=== PATIENT | female | born 1970 | race Caucasian/White ===

== ENCOUNTER 2022-01-15 11:57 | Outpatient (CLI) | payer BC, SELFPAY ==
[2022-01-15 21:19] LABS: Albumin* 4.6 g/dL (3.3-5.0); Chloride* 108 mmol/L (96-114); Sodium* 140 mmol/L (135-149)
[2022-01-15 21:20] LABS: Potassium* 4.4 mmol/L (3.6-5.1)
[2022-01-15 21:22] LABS: Alkaline Phosphatase* 87 U/L (40-150); Aspartate Amino Transferase* 30 U/L (12-35); Bilirubin Total* 0.6 mg/dL (0.1-1.5); Blood Urea Nitrogen* 17 mg/dL (7-30); Calcium* 9.4 mg/dL (8.4-10.6); Carbon Dioxide* 21 mmol/L (20-32); Cholesterol* 202 mg/dL (90-199); Creatinine* 1.1 mg/dL (0.5-1.5); Estimated Glomerular Filt Rate 61 ml/min; Glucose* 98 mg/dL (60-115); Total Protein* 7.4 g/dL (6.0-8.3); Triglycerides* 127 mg/dL (40-149)
[2022-01-15 21:23] LABS: Alanine Aminotransferase* 27 U/L (4-35); HDL Cholesterol* 54 mg/dL (>=50); LDL Cholesterol Calculated 123 mg/dL (<100)
[2022-01-15 21:52] LABS: TSH With Reflex to FT4* 0.476 uIU/mL (0.270-4.200)
[2022-01-17 11:07] LABS: Follicle Stimulating Hormone 7.2 IU/L
== END 2022-01-15 11:58 | disposition home or self-care (01) ==
PROVIDERS: PCP Physician Assistant Medical; Visit Provider Physician Assistant Medical
DX: Z00.00 Encounter for general adult medical examination without abnormal findings (principal); N91.2 Amenorrhea, unspecified; K75.4 Autoimmune hepatitis
CPT/HCPCS: 80053; 80061; 83001; 84443

== ENCOUNTER 2022-05-15 11:14 | Outpatient (CLI) | payer BC, SELFPAY ==
--- NOTE | 2022-05-15 11:30 | CRLHL7_ITS ---
For Patients: As a result of the Century Cures Act, medical imaging exams and procedure reports are released immediately into your electronic medical record. You may view this report before your referring provider. If you have questions, please contact your health care provider. BILATERAL SCREENING MAMMOGRAM WITH COMPUTER-AIDED DETECTION TECHNIQUE: CC and MLO views were obtained. These mammographic images have been obtained using full-field digital technique. These mammographic images were interpreted with the benefit of computer-aided detection. COMPARISON FILM: 03/28/17, 10/05/15, 03/01/10. FINDINGS: The breasts are almost entirely fatty IMPRESSION: There is no radiographic evidence for malignancy. ASSESSMENT: BI-RADS Category 1: Negative RECOMMENDATION: Routine screening mammogram in 1 year. A lay language report of this examination will be provided to the patient. Nas Hussein M.D. Diagnostic Radiologist [email or web address] DIANE/Dictated by: Nas Hussein MD @ 05/15/2022 12:21:00 PM (Electronically Signed)
== END 2022-05-15 11:15 | disposition home or self-care (01) ==
LOC: MAMMO 11:15
PROVIDERS: PCP Physician Assistant Medical; Visit Provider Physician Assistant Medical
DX: Z12.31 Encounter for screening mammogram for malignant neoplasm of breast (principal)
CPT/HCPCS: 77067

== ENCOUNTER 2022-09-26 13:08 | Outpatient (REF) | payer BC, SELFPAY ==
[2022-09-26 14:10] LABS: Albumin* 4.2 g/dL (3.3-5.0)
[2022-09-26 14:11] LABS: Chloride* 113 mmol/L (96-114); Potassium* 4.2 mmol/L (3.6-5.1); Sodium* 141 mmol/L (135-149)
[2022-09-26 14:13] LABS: Aspartate Amino Transferase* 34 U/L (12-35); Bilirubin Total* 0.6 mg/dL (0.1-1.5); Carbon Dioxide* 22 mmol/L (20-32); Cholesterol* 184 mg/dL (90-199); Creatinine* 1.1 mg/dL (0.5-1.5); Estimated Glomerular Filt Rate 60 ml/min; Total Protein* 7.1 g/dL (6.0-8.3)
[2022-09-26 14:14] LABS: Alanine Aminotransferase* 42 U/L (4-35); Alkaline Phosphatase* 66 U/L (40-150); Blood Urea Nitrogen* 17 mg/dL (7-30); Glucose* 91 mg/dL (60-115); Triglycerides* 97 mg/dL (40-149)
[2022-09-26 14:15] LABS: Calcium* 8.9 mg/dL (8.4-10.6); HDL Cholesterol* 47 mg/dL (>=50); LDL Cholesterol Calculated 118 mg/dL (<100)
[2022-09-26 14:22] LABS: Hemoglobin A1C* 5.22 % (0-5.6)
[2022-09-26 14:44] LABS: TSH With Reflex to FT4* 0.952 uIU/mL (0.270-4.200)
[2022-09-28 12:53] LABS: Insulin, Fasting 11 uIU/mL (3-25)
[2022-09-28 17:08] LABS: CRP, High Sensitivity 3.8 mg/L (<=3.0)
== END 2022-09-26 13:09 | disposition home or self-care (01) ==
LOC: NPINS 13:08
PROVIDERS: PCP Physician Assistant Medical
DX: E66.9 Obesity, unspecified (principal); Z13.6 Encounter for screening for cardiovascular disorders; Z13.1 Encounter for screening for diabetes mellitus; Z13.29 Encounter for screening for other suspected endocrine disorder; Z13.228 Encounter for screening for other metabolic disorders
CPT/HCPCS: 80053; 80061; 83036; 83525; 84443; 86141

== ENCOUNTER 2023-02-22 16:53 | Outpatient (CLI) | payer BC, SELFPAY | END 2023-02-22 16:54 | disposition home or self-care (01) | LOC: LKVREF 16:54 | PROVIDERS: PCP Physician Assistant Medical; Visit Provider Nurse Practitioner Family | DX: Z20.822 Contact with and (suspected) exposure to COVID-19 (principal); K75.4 Autoimmune hepatitis; R05.8 Other specified cough | CPT/HCPCS: 80053 ==

== ENCOUNTER 2023-06-08 13:43 | Emergency (ER) | payer BC, SELFPAY ==
[2023-06-08 13:49] VITALS: BP 122/79; PULSE 94; RESP 16; TEMP 36.8; O2SAT 100; BMI 31.1
--- NOTE | 2023-06-08 14:06 | CRLHL7_ITS ---
For Patients: As a result of the Century Cures Act, medical imaging exams and procedure reports are released immediately into your electronic medical record. You may view this report before your referring provider. If you have questions, please contact your health care provider. INDICATION: Left-sided chest pain COMPARISON: 02/22/2023 TECHNIQUE: PA and lateral 2 view chest radiograph. FINDINGS: The lungs are well expanded. No focal consolidations. No pulmonary edema. No pleural effusion. No pneumothorax. No pneumomediastinum. Normal cardiomediastinal silhouette. Bones: Normal for age. Surgical clips upper abdomen. Rounded calcifications in both upper quadrants and a similar distribution to prior. IMPRESSION: Lungs are clear. No acute findings. Dictated by Suyapa Rubin MD @ 06/08/2023 2:54:36 PM (Electronically Signed)
[2023-06-08 14:35] LABS: Appearance Urine Turbid (Clear); Bilirubin Urine Negative (Negative); Blood Urine 2+ (Negative); Glucose Urine Negative (Negative); Ketones Urine Negative (Negative); Leukocyte Esterase Urine Trace (Negative); Nitrite Urine Negative (Negative); Protein Urine 2+ (Negative); Specific Gravity Urine 1.015 (1.000-1.030); Urobilinogen Urine 0.2 (0.2-1.0)
--- NOTE | 2023-06-08 14:37 | ED_ITS ---
HPI - General Adult General Chief complaint: Fall/Minor Trauma Stated complaint: Thinks kidney infection-back pain Time Seen by Provider: 06/08/23 13:58 History of Present Illness HPI narrative: Patient is a 53-year-old white female who has had history of kidney stones, autoimmune hepatitis which he is on chronic steroids presents with left flank pain that started today she describes it more in her left lower chest wall. She has no breathing difficulty, no anterior chest pain, no diaphoresis or shortness of breath. She has had no fever chills or cough. She has had a kidney stone in the past. She is wondering if that might be the case. Has not noticed any blood in her urine. She presents to ED for evaluations much better at this point. She did feel little nauseated to now that is passed. Related Data Home Medications Medication Instructions Recorded Confirmed prednisone 5 mg tablet 5 mg PO DAILY 01/15/22 06/08/23 Previous Rx's Medication Instructions Recorded medroxyprogesterone 150 mg/mL 1 mg (0.0067 mL) IM [id number] #1 mL 01/15/22 intramuscular suspension buspirone 15 mg tablet 7.5 mg (1/2 x 15 mg) PO TID #135 04/22/23 tabs levothyroxine 88 mcg tablet 88 mcg PO DAILY #90 tabs 04/22/23 Allergies Allergy/AdvReac Type Severity Reaction Status Date / Time levofloxacin Allergy Intermediate Rash Verified 06/08/23 13:49 azathioprine Allergy Mild Rash Verified 06/08/23 13:49 clotrimazole Allergy Mild Burning Verified 06/08/23 13:49 Review of Systems Status of ROS: Reports: 6 or more systems reviewed and unremarkable except as noted in History and below PFSH PFS Medical History COVID-19 ?U07.1 - COVID-19 (ICD-10) Surgical History History of endometrial ablation ?Z98.890 - Other specified postprocedural states (ICD-10) History of bilateral ligation of fallopian tubes ?Z98.51 - Tubal ligation status (ICD-10) Family History Other Crohn's disease Rheumatoid arthritis Social History Smoking Status: Never smoker Do you use any of these nicotine containing products: None Second hand tobacco smoke exposure: No How often do you have a drink containing alcohol: never AUDIT-C Alcohol total score: 0 Non-prescribed substance use: denies use Little interest or pleasure in doing things: several days Feeling down, depressed, or hopeless: not at all Exam Narrative: Exam Narrative: Objective: Afebrile in good O2 sat General no apparent distress HEENT is unremarkable no scleral icterus mouth clear neck is supple chest is clear no rales or wheezing heart rhythm regular no murmur abdomen nontender no masses no rebound negative CVA tenderness patient does have exquisite tenderness over costochondral margin on the left no rash noted there this is at the mid axillary line Extremities are no edema neurologic nonfocal. Const: Vital Signs, click to edit/add: Vital Signs - 24 hr 06/08/23 13:49 06/08/23 16:00 Temperature 98.3 F Pulse Rate [Pulse Oximeter] 94 95 Respiratory Rate 16 Blood Pressure [Ri t Upper Arm] 122/79 Pulse Oximetry 100 96 Oxygen Delivery Me thod Room Air Room Air Course Vital Signs Vital signs: Initial Vital Signs Temperature 98.3 F 06/08/23 13:49 Temperature Source Temporal Artery Scan 06/08/23 13:49 Pulse Rate 94 06/08/23 13:49 Respiratory Rate 16 06/08/23 13:49 Blood Pressure 122/79 06/08/23 13:49 Blood Pressure Mean 93 06/08/23 13:49 Blood Pressure Position Sitting 06/08/23 13:49 Pulse Oximetry 100 06/08/23 13:49 Oxygen Delivery Method Room Air 06/08/23 13:49 Vital Signs Temperature 98.3 F 06/08/23 13:49 Pulse Rate 94 06/08/23 13:49 Respiratory Rate 16 06/08/23 13:49 Blood Pressure 122/79 06/08/23 13:49 Pulse Oximetry 100 06/08/23 13:49 Oxygen Delivery Method Room Air 06/08/23 13:49 Temperature 98.3 F 06/08/23 13:49 Pulse Rate 95 06/08/23 16:00 Respiratory Rate 16 06/08/23 13:49 Blood Pressure 122/79 06/08/23 13:49 Pulse Oximetry 96 06/08/23 16:00 Oxygen Delivery Method Room Air 06/08/23 16:00 Medical Decision Making MDM Narrative Medical decision making narrative: 53-year-old female with left chest wall intercostal type pain costochondral type pain. She has palpable tenderness over lower ribcage. She has no anterior chest pain. I think because of her history kidney stones be reasonable get a urinalysis lab studies. Also got a chest x-ray which by my review looks unremarkable I do not see any obvious infiltrate or rib injury. She denies trauma. She has definitely exquisitely tender right over the lower chondral margin when palpated. If her labs reassuring I think she can simply try some anti-inflammatory medication and observe she is much better at this point. I do not have suspicion for acute coronary syndrome or pulmonary embolus. Especially with the exquisite physical things am finding a point tenderness or chondral margin I think that would be indicative of some chest wall inflammatory condition. Review these studies as they return. Addendum: 3:48 p.m. patient has a negative chest x-ray because her urinalysis is abnormal we did a CT scan of her abdomen without contrast she has multiple kidney stones in her kidneys she also has have 5 mm in a 7 mm stone in her left ureter I think that is the source of her issue. She has greater than 100 red cells per high-powered field and some bacteria. Because of the stones I think was put on antibiotics will give her Septra DS 1 p.o. b.i.d. times 10 days would also give her some [place] and Toradol. This will be [facility] med. She I recommend she see a urologist soon as possible for reassessment of her kidney stone issues. Again she has multiple stones in her kidneys 2 likely the severe recurrent issue. Lab Data Labs: Lab Results 06/08/23 06/08/23 Range/Units 14:10 14:27 WBC 10.81 (4.50-11.00) K/uL RBC 4.26 (4.00-5.20) m/uL Hgb 12.8 (12.0-16.0) gm/dL Hct 39.8 (33.0-51.0) % MCV 93 (80-100) fL MCH 30 (26-34) pg MCHC 32 (32-36) gm/dL RDW Coeff of [place]ora 12.9 (11.5-15.5) % Plt Count 200 (140-440) K/uL Neut % (Auto) 76.1 H (42.0-72.0) % Lymph % (Auto) 13.9 L (20-44) % Banks % (Auto) 7.9 (0.0-11.0) % Eos % (Auto) 1.1 (0.0-7.0) % Baso % (Auto) 0.2 (0.0-3.0) % Neut # (Auto) 8.20 H (1.7-7.0) K/uL Lymph # (Auto) 1.50 (0.90-2.90) K/uL Banks # (Auto) 0.90 (0.00-0.90) K/UL Eos # (Auto) 0.12 (0.00-0.50) K/uL Baso # (Auto) 0.02 (0.00-0.30) K/uL Abs Immat Gran (auto) 0.09 (0.00-0.30) K/uL Imm/Tot Granulo (auto) 0.8 % D-Dimer Quant (PE/DVT) 0.31 (0.00-0.50) ug/ml Sodium 141 (135-149) mmol/L Potassium 3.7 (3.6-5.1) mmol/L Chloride 110 (96-114) mmol/L Carbon Dioxide 20 (20-32) mmol/L Anion Gap 11 (7-15) mEq/L BUN 17 (7-30) mg/dL Creatinine 1.6 H (0.5-1.5) mg/dL Estimated Creat Clear 32.16 Estimated GFR 38 ml/min Glucose 82 (60-115) mg/dL Calcium 9.3 (8.4-10.6) mg/dL Total Bilirubin 0.7 (0.1-1.5) mg/dL Direct Bilirubin 0.0 (0.0-0.5) mg/dL AST 30 (12-35) U/L ALT 36 H (4-35) U/L Alkaline Phosphatase 72 (40-150) U/L C-Reactive Protein 2.7 H (0.5-1.0) mg/dL Total Protein 7.4 (6.0-8.3) g/dL Albumin 4.5 (3.3-5.0) g/dL Amylase 88 (18-89) U/L Urine Color Green A (Yellow) Urine Appearance Turbid A (Clear) Urine pH 7.0 (5.0-8.5) Ur Specific [place] 1.015 (1.000-1.030) Urine Protein 2+ A (Negative) Urine Glucose (UA) Negative (Negative) Urine Ketones Negative (Negative) Urine Blood 2+ A (Negative) Urine Nitrite Negative (Negative) Urine Bilirubin Negative (Negative) Urine Urobilinogen 0.2 (0.2-1.0) Ur Leukocyte Esterase Trace A (Negative) Urine RBC >100 A (0-2) Urine WBC 5-10 A (0-5) Ur Squamous Epith Cells Few (None-Few) Urine Bacteria Few A (None) Discharge Plan Discharge Clinical Impression: Acute chest wall pain, Kidney stone Patient Disposition: Home, Self-Care Condition: Stable Additional Instructions: Toradol an [place] as needed for flank pain. Ice to the left chest wall as needed 5 minutes 3 4 times a day. Light activity. Follow up with regular doctor in the next 3-4 days, certainly return to ED sooner problems concerns or worsening. Recommend urology appointment to follow-up kidney stones on the ureter on the left side. You contact your regular doctor regarding this as well. Please give the patient a urine strainer for the next 48 hours. Activity Level: Light activity Discharge Diet: Regular Prescriptions: No Action buspirone 15 mg tablet 7.5 mg PO TID Qty: 135 3RF prednisone 5 mg tablet 5 mg PO DAILY medroxyprogesterone 150 mg/mL suspension 1 mg IM [id number] Qty: 1 0RF Rx Instructions: Q 3 months levothyroxine 88 mcg tablet 88 mcg PO DAILY Qty: 90 3RF Follow Up/Referrals: Yola Walters PA-C [Primary Care Provider] - Stand Alone Forms: [facility] Info Instructions
[2023-06-08 14:42] LABS: Basophils Absolute Auto 0.02 K/uL (0.00-0.30); Basophils Percent Auto 0.2 % (0.0-3.0); Eosinophils Absolute Auto 0.12 K/uL (0.00-0.50); Eosinophils Percent Auto 1.1 % (0.0-7.0); Hematocrit 39.8 % (33.0-51.0); Hemoglobin* 12.8 gm/dL (12.0-16.0); Immature Granulocytes Abs Auto 0.09 K/uL (0.00-0.30); Immature Granulocytes Pct Auto 0.8 %; Lymphocytes Percent Auto 13.9 % (20-44); Mean Corpuscular HGB Conc 32 gm/dL (32-36); Mean Corpuscular Hemoglobin 30 pg (26-34); Mean Corpuscular Volume 93 fL (80-100); Monocytes Percent Auto 7.9 % (0.0-11.0); Neutrophils Percent Auto 76.1 % (42.0-72.0); Platelet Count* 200 K/uL (140-440); RDW Coefficient of Variation % 12.9 % (11.5-15.5); Red Blood Count 4.26 m/uL (4.00-5.20); White Blood Count* 10.81 K/uL (4.50-11.00)
[2023-06-08 14:48] LABS: Chloride* 110 mmol/L (96-114); Slide Review Reflex No; Sodium* 141 mmol/L (135-149)
[2023-06-08 14:49] LABS: Potassium* 3.7 mmol/L (3.6-5.1)
[2023-06-08 14:50] LABS: Albumin* 4.5 g/dL (3.3-5.0)
[2023-06-08 14:51] LABS: Amylase* 88 U/L (18-89); Creatinine* 1.6 mg/dL (0.5-1.5); Est. Creatinine Clearance* 32.16; Estimated Glomerular Filt Rate 38 ml/min
[2023-06-08 14:52] LABS: Anion Gap 11 mEq/L (7-15); Bilirubin Total* 0.7 mg/dL (0.1-1.5); Blood Urea Nitrogen* 17 mg/dL (7-30); Calcium* 9.3 mg/dL (8.4-10.6); Carbon Dioxide* 20 mmol/L (20-32); Glucose* 82 mg/dL (60-115); Total Protein* 7.4 g/dL (6.0-8.3)
[2023-06-08 14:53] LABS: Alanine Aminotransferase* 36 U/L (4-35); Alkaline Phosphatase* 72 U/L (40-150); Aspartate Amino Transferase* 30 U/L (12-35)
[2023-06-08 14:54] LABS: D Dimer Quantitative* 0.31 ug/ml (0.00-0.50)
[2023-06-08 14:55] LABS: C Reactive Protein* 2.7 mg/dL (0.5-1.0)
[2023-06-08 14:56] LABS: Bacteria Urine Few; RBC Urine >100 (0-2); Squamous Epithelial Cell Urine Few (None-Few)
--- NOTE | 2023-06-08 15:00 | CRLHL7_ITS ---
For Patients: As a result of the 21st Century Cures Act, medical imaging exams and procedure reports are released immediately into your electronic medical record. You may view this report before your referring provider. If you have questions, please contact your health care provider. INDICATION: Left flank pain. Hematuria TECHNIQUE: CT abdomen and pelvis without contrast. COMPARISON: None. FINDINGS: The study is performed without intravenous contrast. This limits sensitivity for detection of abdominal/pelvic pathology, including pathology of the vasculature (specifically evaluation of possible vascular thromboembolism, arterial dissection, stenosis or occlusion), the integrity of the bowel (including bowel wall enhancement) and solid viscera (including detection of focal lesions within the viscera). If there is ongoing concern for otherwise occult pathology such as this, based on the clinical presentation of the patient, consider the risk/benefit of a study with intravenous contrast. Lower chest: Inferior lingular segment left upper lobe pleural-based been opacity unchanged consistent with scar. Liver: Normal in size and attenuation. No suspicious masses. Gallbladder and bile ducts: Cholecystectomy. Pancreas: Unremarkable. No mass or inflammation. Spleen: Normal in size. No masses. Adrenal glands: Normal in size. No nodules. Kidneys: There are 2 stones in the left upper urinary tract, 1 measuring 5 mm at the ureteropelvic junction and another measuring 7 mm in the distal ureter at the level of the left acetabulum (series 3; image 52 and 2; 100, respectively). These findings are associated with left hydronephrosis, moderate, and parapelvic fat stranding consistent with obstructive uropathy. Numerous, too many index, bilateral nonobstructing nephroliths are otherwise identified. Anterior right upper pole 12 mm round circumscribed homogeneous low-density finding consistent with a benign cyst. GI tract: Unremarkable. Normal in caliber. No sign of mass or inflammation. Normal appendix. Vasculature: Abdominal aorta is normal in caliber. Lymph nodes: No lymphadenopathy. Peritoneum/Abdominal Wall: Unremarkable. No sign of mass or infiltration. No free air or significant free fluid. Pelvis: Unremarkable. No pelvic masses. Bones: Unremarkable for age. IMPRESSION: There are 2 left upper urinary tract obstructing stone is, the smaller measuring 5 mm at the ureteropelvic junction and the larger measuring 7 mm in the distal ureter in the pelvis at the level of the acetabulum. Associated findings consistent with obstructive uropathy including moderate left hydronephrosis. Numerous, too many index, bilateral nonobstructing nephroliths are otherwise identified. Please note that all CT scans at this facility use dose modulation, iterative reconstruction, and/or weight-based dosing when appropriate to reduce radiation dose to as low as reasonably achievable. Dictated by Niall Frances MD @ 06/08/2023 3:39:18 PM (Electronically Signed)
[2023-06-08 16:00] VITALS: PULSE 95; O2SAT 96
== END 2023-06-08 16:02 | disposition home or self-care (01) ==
LOC: ED 14:53
PROVIDERS: Emergency Provider Family Medicine; PCP Physician Assistant Medical
DX: R07.89 Other chest pain (principal); N20.0 Calculus of kidney
CPT/HCPCS: 36415; 71046; 74176; 80048; 80076; 81001; 82150; 85025; 85379; 86140; 87086; 99284; 99285

== ENCOUNTER 2023-07-10 16:26 | Outpatient (CLI) | payer BC, SELFPAY | END 2023-07-10 16:27 | disposition home or self-care (01) | PROVIDERS: PCP Physician Assistant Medical; Visit Provider Physician Assistant Medical | DX: E03.9 Hypothyroidism, unspecified (principal) | CPT/HCPCS: 82306; 82310; 83970; 84443; 87086 ==

== ENCOUNTER 2023-07-23 14:30 | Outpatient (CLI) | payer BC, SELFPAY ==
--- NOTE | 2023-07-23 15:00 | CT_ITS ---
Final Report Patient: TIFFANIE TAM Facility:?[facility] Patient ID:?[id number] Site Patient ID:?[id number]. Site :?[id number] Study:?CT Abdomen/Pelvis STONE STUDY-07/23/2023 2:58:01 PM Ordering Physician:RITESH Final Report: Indication: Renal stones Technique: Noncontrast CT abdomen and pelvis Please note that all CT scans at this facility use dose modulation, iterative reconstruction, and/or weight-based dosing when appropriate to reduce radiation dose to as low as reasonably achievable. Comparison: 06/08/2023 Findings: Bilateral renal stones are present measuring up to 6-7 millimeters. No hydronephrosis. No ureteral or bladder stone. No hydroureter. No inflammation. Liver normal. Gallbladder absent. Normal spleen. Pancreas normal. Normal adrenal glands. No bowel obstruction or free air. No free fluid. Normal uterus and ovaries. Appendix unremarkable. Degenerative facet arthropathy L4 through S1. No vertebral body compression fracture. Impression: Multiple bilateral nonobstructing renal calculi. Interval clearing of the previously noted stone within the left ureter. No hydronephrosis. Please note that all CT scans at this facility use dose modulation, iterative reconstruction, and/or weight-based dosing when appropriate to reduce radiation dose to as low as reasonably achievable. Dictated by Nas Hussein MD @ 07/24/2023 9:49:30 AM (Electronic Signature)
== END 2023-07-23 14:31 | disposition home or self-care (01) ==
PROVIDERS: PCP Physician Assistant Medical; Visit Provider Physician Assistant Medical
DX: N20.0 Calculus of kidney (principal)
CPT/HCPCS: 74176

== ENCOUNTER 2023-09-12 15:38 | Outpatient (CLI) | payer BC, SELFPAY | END 2023-09-12 15:39 | disposition home or self-care (01) | LOC: NFLDREF 09-13 12:30 | PROVIDERS: PCP Physician Assistant Medical; Referring Provider Physician Assistant Medical; Visit Provider Physician Assistant Medical | DX: E03.9 Hypothyroidism, unspecified (principal); F41.8 Other specified anxiety disorders; Z30.9 Encounter for contraceptive management, unspecified | CPT/HCPCS: 82306; 82607; 83001 ==

== ENCOUNTER 2023-11-27 08:26 | Outpatient (CLI) | payer BC, SELFPAY | END 2023-11-27 08:27 | disposition home or self-care (01) | LOC: NFLDREF 08:26 | PROVIDERS: PCP Physician Assistant Medical; Visit Provider Physician Assistant | DX: N91.2 Amenorrhea, unspecified (principal) | CPT/HCPCS: 83001 ==

== ENCOUNTER 2023-12-30 14:07 | Outpatient (REF) | payer BC, SELFPAY ==
[2023-12-30 14:37] LABS: Appearance Urine Clear (Clear); Bilirubin Urine Negative (Negative); Blood Urine 1+ (Negative); Color Urine Yellow (Yellow); Glucose Urine Negative (Negative); Ketones Urine Negative (Negative); Leukocyte Esterase Urine 1+ (Negative); Nitrite Urine Negative (Negative); Protein Urine Negative (Negative); Specific Gravity Urine <= 1.005 (1.000-1.030); Urobilinogen Urine 0.2 (0.2-1.0); pH Urine 6.5 (5.0-8.5)
[2023-12-30 14:53] LABS: Bacteria Urine Few; Squamous Epithelial Cell Urine Many (None-Few)
== END 2023-12-30 14:08 | disposition home or self-care (01) ==
LOC: NPINS 14:07
PROVIDERS: PCP Physician Assistant Medical; Visit Provider Urology
DX: N20.0 Calculus of kidney (principal)
CPT/HCPCS: 81001; 87086

== ENCOUNTER 2024-03-03 15:17 | Outpatient (CLI) | payer BC, SELFPAY ==
--- NOTE | 2024-03-03 15:40 | CRLHL7_ITS ---
For Patients: As a result of the Century Cures Act, medical imaging exams and procedure reports are released immediately into your electronic medical record. You may view this report before your referring provider. If you have questions, please contact your health care provider. BILATERAL SCREENING MAMMOGRAM WITH COMPUTER-AIDED DETECTION AND TOMOSYNTHESIS TECHNIQUE: CC and MLO views were obtained. These mammographic images have been obtained using full-field digital technique. These mammographic images were interpreted with the benefit of computer-aided detection. Breast Tomosynthesis was used in this interpretation. COMPARISON FILM: 05/15/22, 03/28/17, 10/05/15. FINDINGS: The breasts are almost entirely fatty. IMPRESSION: There is no radiographic evidence for malignancy. ASSESSMENT: BI-RADS Category 1: Negative RECOMMENDATION: Routine screening mammogram in 1 year. A lay language report of this examination will be provided to the patient. Nas Hussein M.D. Diagnostic Radiologist [email or web address] SP/Dictated by: Nas Hussein MD @ 03/06/2024 12:04:00 PM (Electronically Signed)
== END 2024-03-03 15:18 | disposition home or self-care (01) ==
LOC: MAMMO 15:18
PROVIDERS: PCP Physician Assistant Medical; Visit Provider Physician Assistant Medical
DX: Z12.31 Encounter for screening mammogram for malignant neoplasm of breast (principal)
CPT/HCPCS: 77063; 77067

== ENCOUNTER 2024-05-25 10:28 | Outpatient (CLI) | payer BC, SELFPAY | END 2024-05-25 10:29 | disposition home or self-care (01) | PROVIDERS: PCP Physician Assistant Medical; Visit Provider Physician Assistant Medical | DX: E03.9 Hypothyroidism, unspecified (principal); Z13.228 Encounter for screening for other metabolic disorders; Z13.220 Encounter for screening for lipoid disorders | CPT/HCPCS: 80053; 80061; 84443 ==

== ENCOUNTER 2024-08-27 12:03 | Outpatient (CLI) | payer BC, SELFPAY | END 2024-08-27 12:04 | disposition home or self-care (01) | PROVIDERS: PCP Physician Assistant Medical; Visit Provider Registered Nurse | DX: N92.0 Excessive and frequent menstruation with regular cycle (principal) | CPT/HCPCS: 83001 ==

== ENCOUNTER 2024-09-02 13:43 | Outpatient (CLI) | payer BC, SELFPAY ==
--- NOTE | 2024-09-02 14:00 | CRLHL7_ITS ---
For Patients: As a result of the Century Cures Act, medical imaging exams and procedure reports are released immediately into your electronic medical record. You may view this report before your referring provider. If you have questions, please contact your health care provider. XR DXA BONE MINERAL DENSITY (BMD) Current height (in): 62.5. Weight (lb): 183.0. Menopause age: 54. Ethnicity: White. Reason for exam: Asymptomatic menopausal state. 1. Have you had a previous hip or vertebral fracture? No. 2. Have you had any fractures during your adult life which did not result from significant trauma (e.g., auto accident)? No. 3. Did either of your parents have a hip fracture? No. 4. Do you smoke? No. 5. Have you ever taken Glucocorticoids? Yes. 6. Do you have rheumatoid arthritis? No. 7. Do you have secondary osteoporosis? No. 8. Do you drink 3 or more alcoholic drinks per day? No. 9. Are you being treated for osteoporosis? No. 10. Have you ever taken any of the following medications: Actonel, Evista, Fosamax, Miacalcin, Reclast, Boniva, Forteo, HRT (i.e. estrogen/hormone therapy), Protelos, Prolia, Vitamin D, Calcium, other ??? please specify. ANSWER: No. 11. Do you have any of the following medical conditions: Anorexia or bulimia, asthma or emphysema, end stage renal disease, hyperparathyroidism, any seizure disorders, cancer, inflammatory bowel diseases, hysterectomy, other ??? please specify. ANSWER: No. 12. What was your maximum height (inches)? 63. 13. Do you perform weight bearing exercise regularly? Yes. 14. Do you regularly consume dairy products? Yes. 15. Do you drink caffeinated beverages? Yes. 16. At what age did your period start? 12. 17. Are you premenopausal? No. 18. How many full-term pregnancies have you had? 2. 19. Have you ever missed your period for more than 6 months in a row (not including or menopause)? No. TECHNIQUE: Bone mineral density study was performed using the [employer] Software. FINDINGS: The results of the study expressed as bone mineral density (BMD) are as follows: Lumbar spine L1 to L4: BMD: 0.880 g/cm2. T-score: -1.5. Z-score: -0.5 Neck Left: BMD: 0.676 g/cm2. T-score: -1.6. Z-score: -0.5 Right: BMD: 0.720 g/cm2. T-score: -1.2. Z-score: -0.1 Total Left: BMD: 0.841 g/cm2. T-score: -0.8. Z-score: -0.2 Right: BMD: 0.907 g/cm2. T-score: -0.3. Z-score: 0.4 IMPRESSION: Osteopenia. *Comparison exams done prior to 11/2019 were performed on different unit, [facility]. COMPARISON: Compared with scan of 03/28/2017, the bone mineral density has decreased by 7.1 percent at the spine and decreased by 3.2 percent at the hip. FRAX 10-year Fracture Risk Major Osteoporotic Fracture: 9.8 percent Hip Fracture: 0.8 percent Reported Risk Factors: [place] () Neck BMD = 0.676, BMI = 32.9 Mitul Jane M.D. Diagnostic Radiologist [email or web address] Transcribed: 2:54 pm DW/Dictated by: Mitul Jane MD @ 09/03/2024 9:09:00 AM (Electronically Signed)
== END 2024-09-02 13:44 | disposition home or self-care (01) ==
LOC: RAD 13:44
PROVIDERS: PCP Physician Assistant Medical; Visit Provider Physician Assistant Medical
DX: Z78.0 Asymptomatic menopausal state (principal); M85.89 Other specified disorders of bone density and structure, multiple sites; D84.821 Immunodeficiency due to drugs; T38.0X5A Adverse effect of glucocorticoids and synthetic analogues, initial encounter; Z79.52 Long term (current) use of systemic steroids
CPT/HCPCS: 77080

== ENCOUNTER 2025-03-24 15:09 | Outpatient (CLI) | payer BC, SELFPAY | END 2025-03-24 15:10 | disposition home or self-care (01) | PROVIDERS: PCP Physician Assistant Medical; Visit Provider Physician Assistant Medical | DX: E03.9 Hypothyroidism, unspecified (principal); K75.4 Autoimmune hepatitis; L65.9 Nonscarring hair loss, unspecified; M85.80 Other specified disorders of bone density and structure, unspecified site; Z78.0 Asymptomatic menopausal state | CPT/HCPCS: 80053; 82607; 82728; 84439; 84443 ==